=== PATIENT | male | born 1985 | race Caucasian/White ===

== ENCOUNTER 2022-04-24 14:21 | Emergency (ER) | payer BC, SELFPAY ==
--- NOTE | ~2022-04-24 | US_ITS ---
EXAMINATION: US SCROTUM CLINICAL INFORMATION: Right testicle pain for 5 days. COMPARISON: None TECHNIQUE: A sonogram of the scrotum was performed assessing stevenson-scale appearance and color Doppler flow. Spectral Doppler analysis of the arterial and venous flow were performed in the testes bilaterally. FINDINGS: RIGHT: Right testicle measures 6.2 x 3 x 3.6 cm, volume 35 mL. There is a single small punctate calcification. No focal testicular parenchymal lesions are visualized. Spectral Doppler analysis of the arterial and venous flow is normal in the right testis. Right epididymal head is normal in size. No right hydrocele or varicocele is seen. Right epididymal Doppler flow is normal. LEFT: Left testicle measures 5.8 x 2.3 x 3.3 cm, volume 23 mL. There is a punctate calcification. No focal testicular parenchymal lesions are visualized. Spectral Doppler analysis of the arterial and venous flow is normal in the left testis. Left epididymal head is normal in size. No left hydrocele or varicocele is seen. Left epididymal Doppler flow is normal. US/US scrotum IMPRESSION: Bilateral small punctate testicular calcifications. This does not meet ultrasound criteria for microlithiasis. Otherwise unremarkable exam.
[2022-04-24 14:30] VITALS: BP 150/89; PULSE 96; RESP 19; TEMP 37.1; O2SAT 99; BMI 29.4
[2022-04-24 16:03] LABS: Appearance Urine CLEAR; Color Urine YELLOW; Glucose Urine UA NEG (NEG); Leukocyte Esterase Urine NEG (NEG); Nitrite Urine NEG (NEG); Urine Blood NEG (NEG); Urine Ketones NEG (NEG); Urine Protein NEG (NEG-TRACE)
--- NOTE | 2022-04-24 17:03 | ED.MALEGU ---
HPI - Male Genitourinary General Chief complaint: Urogenital-Male Stated complaint: testicular pain Time Seen by Provider: 04/24/22 15:37 Source: patient Mode of arrival: ambulatory Limitations: no limitations History of Present Illness HPI Narrative: 36-year-old male presents with 5 days of right-sided testicular pain. Patient has noticed urinary frequency, and a mild amount of dysuria. Patient has been feeling well, no fevers, no scrotal swelling or masses, no lesions on his penis, no penile discharge. No abdominal pain, no nausea, no vomiting, no diarrhea. Patient has not done any heavy lifting, he works at a [employer]. Patient has no concerns for STDs. Related Data Previous Rx's Medication Instructions Recorded ketorolac 10 mg tablet 10 mg PO TID 5 days #15 tabs 04/24/22 Allergies Allergy/AdvReac Type Severity Reaction Status Date / Time No Known Allergies Allergy Verified 04/24/22 15:48 Review of Systems Constitutional: Constitutional: Denies body ache(s), Denies chills, Denies fatigue, Denies fever(s), Denies malaise and Denies weakness Eyes: Eyes: Denies diplopia Cardiovascular: Cardiovascular: Denies chest pain, Denies syncope, Denies leg edema, Denies lightheadedness, Denies Loss of Consciousness, Denies palpitations and Denies dyspnea Respiratory: Respiratory: Denies chest congestion, Denies cough and Denies dyspnea Gastrointestinal: Gastrointestinal: Denies abdominal pain, Denies hematochezia, Denies constipation, Denies diarrhea, Denies nausea and Denies vomiting Genitourinary: Genitourinary: Denies hematuria, Denies difficulty urinating, Denies genital lesions, Denies genital pain, Reports dysuria, Denies flank pain, Denies penile discharge, Denies scrotal swelling, Denies testicular mass, Reports testicular pain, Reports urinary frequency, Denies urinary incontinence and Reports urinary urgency Musculoskeletal: Musculoskeletal: Reports no additional musculoskeletal complaints and Denies back pain Neurologic: Denies confusion, Denies syncope and Denies weakness Psychiatric: Psychiatric: Denies anxiety, Denies confusion and Denies depression Endocrine: Endocrine: Denies fatigue and Denies palpitations PMFSH Social History Social History Advance Directives: No Advance Directives Information Provided: No Physical Exam Vital Signs: Vital Signs: Last Vital Signs Temp 98.7 F 04/24/22 14:30 Pulse 96 04/24/22 14:30 Resp 19 04/24/22 14:30 BP 150/89 H 04/24/22 14:30 Pulse Ox 99 04/24/22 14:30 O2 Del Method 04/24/22 14:30 BMI result Body Mass Index 29.4 Const: General: No confusion Nutritional Appearance: well nourished Orientation/consciousness: No confusion Limitations: no limitations Eyes: Conjunctivae: conjunctivae normal Pupils: Equal, round and reactive pupils present EOM: EOMs intact bilaterally Neck: Neck: Yes full ROM, Yes no lymphadenopathy and Yes supple Resp: Effort & Inspection: normal respiratory effort and able to speak in complete sentences Auscultation: clear to auscultation bilaterally, no crackles, no rales, no rhonchi and no wheezes Cardio: Rate: regular rate Rhythm: regular rhythm Heart sounds: S1 normal heart sound present and S2 normal heart sound present GI: Inspection: Yes normal to inspection Palpation (GI): Soft to palpation, nontender, no guarding and not rigid Percussion: Yes normal to percussion Auscultation: normal bowel sounds : Male General Exam: Yes normal external exam, No ecchymosis, No edema, No erythema, No hernia, No inguinal lymphadenopathy, No Genital lesions present, No perineal induration and No tenderness Penis: normal penis, circumcised, uncircumcised, no condylomata, no ecchymosis, not edematous, not erythematous, no masses, no nodules, no papules, no pustules, no vesicles, foreskin retracts, no paraphimosis, no phimosis, no swelling, no ulcerations and No Genital lesions present Meatus: meatus normal, no meatla discharge and No Blood at meatus present Scrotum: scrotum normal Testes: Testes normal, testicular lie normal, epididymides normal, no epidiymal masses, no epidiymal tenderness, no testicular mass, no testicular swelling and no testicular tenderness Skin: General skin exam: no rashes or lesions noted Neuro: General: No confusion Cranial nerves: Yes Equal, round and reactive pupils present Extrem: General: Yes normal to inspection and Yes full ROM Psych: Appearance: grossly normal Affect: normal affect Attitude: cooperative Thought process: Normal thought process present Course Course Course Narrative: 28-year-old male with no significant past medical history presents for 5 days of right-sided testicular pain. Patient has had some mild dysuria and urinary urgency No concerns for sexually transmitted diseases On exam, patient has a benign abdominal exam, patient is with benign male genital exam. No lesions, or masses on penis, scrotum and testes are normal, there is no tenderness to palpation, no masses or nodules, no epididymal pain to palpate, no inguinal lymphadenopathy, no hernia Patient's urine is clean No lower abdominal pain, no bulging, I do not think this is a hernia Asked patient's to step out of the room, so I could ask patient if he had any concerns for STDs in private. Patient did not. Referred patient to Urology, prescribed ketorolac. Counseled patient to return if pain continues Reevaluation(s) Reevaluation #1: FINDINGS: RIGHT: Right testicle measures 6.2 x 3 x 3.6 cm, volume 35 mL. There is a single small punctate calcification. No focal testicular parenchymal lesions are visualized. Spectral Doppler analysis of the arterial and venous flow is normal in the right testis. Right epididymal head is normal in size. No right hydrocele or varicocele is seen. Right epididymal Doppler flow is normal. LEFT: Left testicle measures 5.8 x 2.3 x 3.3 cm, volume 23 mL. There is a punctate calcification. No focal testicular parenchymal lesions are visualized. Spectral Doppler analysis of the arterial and venous flow is normal in the left testis. Left epididymal head is normal in size. No left hydrocele or varicocele is seen. Left epididymal Doppler flow is normal. US/US scrotum IMPRESSION: Bilateral small punctate testicular calcifications. This does not meet ultrasound criteria for microlithiasis. Otherwise unremarkable exam. [facility] - Male Genitourinary Lab Data Labs: Lab Results 04/24/22 Range/Units 15:53 Urine Color YELLOW Urine Appearance CLEAR Urine pH 6.0 (5.0-8.0) Ur Specific [place] 1.010 (1.005-1.025) Urine Protein NEG (NEG-TRACE) MG/DL Urine Glucose (UA) NEG (NEG) MG/DL Urine Ketones NEG (NEG) MG/DL Urine Blood NEG (NEG) Urine Nitrite NEG (NEG) Ur Leukocyte Esterase NEG (NEG) Discharge Plan Discharge Clinical Impression: Pain in right testicle Patient Disposition: Home, Self-Care Instructions: Testicle Pain (ED) Additional Instructions: I have referred you to urology, if you do not hear from them by the end of the day Wednesday, please call them at the following number [phone] I know we discussed not calling Urology, but I do want you to call them, and have a follow-up appointment in place. You can always cancel the appointment if your testicular pain resolves on its own. I have prescribed ketorolac to your pharmacy, this is similar to ibuprofen, do not take any ibuprofen containing products wire taking this medicine Please return to the emergency room if your pain is severe, if you have abdominal pain, nausea or vomiting, or any other new or concerning symptoms Prescriptions: New ketorolac 10 mg tablet 10 mg PO TID 5 Days Qty: 15 0RF Referrals: Lucian Matute MD [Physician] - Interventions: ED Discharge Assessment Last Done: 04/24/22 17:29 Discharge Date/Time: 04/24/22 17:31
[2022-04-24] MEDS: Ketorolac Tromethamine 15 MG/ML VIAL IM (17:19)
== END 2022-04-24 17:31 | disposition home or self-care (01) ==
PROVIDERS: Physician Assistant; Emergency Provider Emergency Medicine Emergency Medical Services; PCP Internal Medicine
DX: N50.811 Right testicular pain (principal); R35.0 Frequency of micturition; R30.0 Dysuria; Z79.899 Other long term (current) drug therapy
CPT/HCPCS: 76870; 81003; 96372; 99284; J1885